=== PATIENT | female | born 1955 ===

== ENCOUNTER → 2017-10-30 14:55 | Outpatient (CLI) | payer OTHER ==
[~2017-10-30] VITALS: Ht 152.4 cm; Wt 77.1 kg
[~2017-10-30 14:55] MED LIST: ASA81 MG; HYZAAR 100-251 EACH PO; LOSARTAN-HCTZ1 EAC1; LOSARTAN-HCTZ1 EAC1 PO; NORVASC5 MG; NORVASC5 MG PO; SIMBASTATIN; SIMVASTATIN10 MG PO
== END | disposition home or self-care (01) ==
LOC: PPHC 14:55
DX: Z76.0 Encounter for issue of repeat prescription (principal)